=== PATIENT | female | born 1955 | race Caucasian/White ===

== ENCOUNTER 2020-03-26 06:58 | Day surgery (SDC) | payer OTHER ==
[~2020-03-26 06:58] MED LIST: Lactated Ringers 1,000 ML IV SCH; Lidocaine 1%/Sod Bicarbonate in NS 8.4% 1 ML Syringe IDERM PRN; Sodium Chloride 0.9% 10 ML Syringe FLUSH PRN
--- NOTE | 2020-03-26 07:29 | PCM.PREANE ---
Preanesthetic Assessment - Anesthesia/Transfusion/Family Hx Anesthesia History: Prior Anesthesia Without Reaction Family History of Anesthesia Reaction: No Transfusion History: No Prior Transfusion(s) - Review of Systems General: No Symptoms Pulmonary: No Symptoms Cardiovascular: No Symptoms Gastrointestinal: No Symptoms Neurological: No Symptoms Other: Reports: None - Physical Assessment NPO Status Date: 03/25/20 NPO Status Time: 23:00 ASA Class: 3 Mental Status: Alert & Oriented x3 Airway Class: Mallampati = 1 Dentition: Reports: Normal Dentition Thyro-Mental Finger Breadths: 3 Mouth Opening Finger Breadths: 3 ROM/Head Extension: Full Lungs: Clear to Auscultation, Normal Respiratory Effort Cardiovascular: Regular Rate, Regular Rhythm - Allergies Allergies/Adverse Reactions: Allergies Allergy/AdvReac Type Severity Reaction Status Date / Time No Known Allergies Allergy Verified 09/14/13 10:10 - Acknowledgements Anesthesia Type Planned: MAC Pt an Appropriate Candidate for the Planned Anesthesia: Yes Alternatives and Risks of Anesthesia Discussed w Pt/Guardian: Yes Pt/Guardian Understands and Agrees with Anesthesia Plan: Yes PreAnesthesia Questionnaire HEENT History: Reports: Allergic Rhinitis, Impaired Vision, Other (See Below) Other HEENT History: eustachian tube dysfuction, wears glasses Cardiovascular History: Reports: Hypertension, Other (See Below) Other Cardiovascular History: bradycardia, palpitations, high cholesterol Respiratory History: Reports: None Gastrointestinal History: Reports: GERD, Other (See Below) Other Gastrointestinal History: hepatic cyst Genitourinary History: Reports: None [employer] History: Reports: None Musculoskeletal History: Reports: Arthritis, Other (See Below) Other Musculoskeletal History: lateral epicondylitis, muscle spasms Neurological History: Reports: Headaches, Chronic Psychiatric History: Reports: None Endocrine/Metabolic History: Reports: Hypothyroidism, Vitamin D Deficiency Hematologic History: Reports: None, Other (See Below) (Leiden Factor V) Immunologic History: Reports: None Oncologic (Cancer) History: Reports: None Dermatologic History: Reports: None - Past Surgical History Head Surgeries/Procedures: Reports: None HEENT Surgical History: Reports: Cataract Surgery, Tonsillectomy Cardiovascular Surgical History: Reports: None Respiratory Surgical History: Reports: None GI Surgical History: Reports: Colonoscopy Female Surgical History: Reports: Section Male Surgical History: Reports: None Neurological Surgical History: Reports: None Musculoskeletal Surgical History: Reports: None Oncologic Surgical History: Reports: None Dermatological Surgical History: Reports: None - SUBSTANCE USE Tobacco Use Status *Q: Former Tobacco User Days Per Week of Alcohol Use: 7 Number of Drinks Per Day: 1 Total Drinks Per Week: 7 Recreational Drug Use History: No - HOME MEDS Home Medications: Home Meds Aspirin 81 mg PO DAILY 03/22/20 [History] Cholecalciferol (Vitamin D3) [Vitamin D3] 2,000 unit PO DAILY 03/22/20 [History] Levothyroxine 25 mcg PO DAILY 03/22/20 [History] Olopatadine [Pataday 0.2% Ophth Soln] 1 drop EYEBOTH BID 03/22/20 [History] atorvaSTATin Calcium [Lipitor] 20 mg PO DAILY 03/22/20 [History] - CURRENT (IN HOUSE) MEDS Current Meds: Current Medications Lactated Ringer's (Ringers, Lactated) 1,000 mls @ 125 mls/hr IV ASDIRECTED CELSA Stop: 03/26/20 23:00 Lidocaine/Sodium Bicarbonate (Buffered Lidocaine 1% In Ns 8.4%) 0.25 ml IDERM ONETIME PRN PRN Reason: Prior to IV Start Stop: 03/26/20 18:00 Sodium Chloride (Saline Flush) 10 ml FLUSH ASDIRECTED PRN PRN Reason: Keep Vein Open Stop: 03/26/20 18:00
[2020-03-26] MEDS ORDERED: Lidocaine 1% 4 ML ONE (07:38)
[2020-03-26] MEDS ORDERED: Propofol 200 MG/20 ML SDV ONE ×4 (07:38→08:47)
--- NOTE | 2020-03-26 09:07 | PCM48HPAN ---
Post Anesthesia Note - EVALUATION WITHIN 48HRS OF ANESTHETIC Vital Signs in Normal Range: Yes Patient Participated in Evaluation: Yes Respiratory Function Stable: Yes Airway Patent: Yes Cardiovascular Function Stable: Yes Hydration Status Stable: Yes Pain Control Satisfactory: Yes Nausea and Vomiting Control Satisfactory: Yes Mental Status Recovered: Yes Vital Signs: Last Vital Signs Temp 36.6 C 03/26/20 09:01 Pulse 76 03/26/20 09:01 Resp 16 03/26/20 09:01 BP 147/79 H 03/26/20 09:01 Pulse Ox 96 03/26/20 09:01
--- NOTE | 2020-03-26 09:36 | PROC ---
DATE OF OPERATION: 03/26/2020 SURGEON: Jocelyn Shetty MD PREOPERATIVE DIAGNOSIS: Prior history of colon polyps. POSTOPERATIVE DIAGNOSES: 1. Two small polyps in the rectosigmoid. 2. Diverticulosis. 3. Grade 2 hemorrhoids. 4. Perianal skin tags. OPERATION PERFORMED: Colonoscopy. ESTIMATED BLOOD LOSS: Minimal. ANESTHESIA: Monitored anesthesia care. COMPLICATIONS: None. INDICATIONS AND CONSENT: The patient is a 65-year-old female who had a colonoscopy with polyp removal in 2018. The patient was scheduled to follow up 3 years after that colonoscopy. The patient presented to my clinic a few weeks ago for evaluation. We evaluated the patient. The patient has stable chronic bradycardia that has been worked up and nothing has been found to be the cause. She is otherwise asymptomatic. Therefore, we scheduled her for colonoscopy for which she is here for today. We already discussed risks, benefits, and alternative in clinic and informed consent was obtained. DETAILS OF THE PROCEDURE: The patient was taken to the procedure room, placed in left lateral decubitus position. Time-out was performed and then monitored anesthesia care was induced. We began the colonoscopy by examining the perianal area. There were couple of skin tags anteriorly that appeared to be benign. Digital rectal examination was normal. Then, we started the colonoscopy. Prep was good. We took the scope all the way to the cecum. Appendiceal orifice and ileocecal valve were photographed. Colonoscopy was slightly challenging due to looping and we had to apply abdominal pressure to complete it. Cecum was otherwise normal. Ascending colon, transverse and descending colon were normal. In the sigmoid colon, there were some small and medium-sized scattered diverticulosis and in the rectosigmoid, there were 2 separate polyps, one was about 3 mm and the other one was 2 mm. These were removed with cold forceps. EBL was minimal. Then, we continued the colonoscopy. In the rectum, retroflexion was performed. There were grade 2 hemorrhoids that were nonirritated and nonbleeding. This was left in place. At this time, then colonoscopy was concluded. Air was suctioned out and scope was removed. The patient to be allowed to recover and return home, will come back and see Apple Bangura in 7 to 14 days for followup. I recommend that the patient have a repeat colonoscopy in 5 years based on her history. MMTINO /[id number] MTDD
--- NOTE | 2020-03-26 14:53 | PCM48HPAN ---
Post Anesthesia Note - EVALUATION WITHIN 48HRS OF ANESTHETIC Vital Signs in Normal Range: Yes Patient Participated in Evaluation: Yes Respiratory Function Stable: Yes Airway Patent: Yes Cardiovascular Function Stable: Yes Hydration Status Stable: Yes Pain Control Satisfactory: Yes Nausea and Vomiting Control Satisfactory: Yes Mental Status Recovered: Yes Vital Signs: Last Vital Signs Temp 36.6 C 03/26/20 09:01 Pulse 58 L 03/26/20 09:30 Resp 16 03/26/20 09:30 BP 141/80 H 03/26/20 09:30 Pulse Ox 96 03/26/20 09:30
== END 2020-03-26 09:42 | disposition home or self-care (01) ==
LOC: JD.SDS 06:58
PROVIDERS: ATTEND Surgery
DX: Z12.11 Encounter for screening for malignant neoplasm of colon (principal); K63.5 Polyp of colon; K57.30 Diverticulosis of large intestine without perforation or abscess without bleeding; K64.1 Second degree hemorrhoids; K64.4 Residual hemorrhoidal skin tags; K21.9 Gastro-esophageal reflux disease without esophagitis; E55.9 Vitamin D deficiency, unspecified; I10 Essential (primary) hypertension; E03.9 Hypothyroidism, unspecified; E78.2 Mixed hyperlipidemia; Z98.890 Other specified postprocedural states; Z87.891 Personal history of nicotine dependence
CPT/HCPCS: 45380; J2001; J2704; J7120; 00812; 88305